=== PATIENT | female | born 1960 | race Caucasian/White ===

== ENCOUNTER → 2017-02-25 | Outpatient (CLI) | payer OTHER ==
[~2017-02-25] VITALS: Ht 168.9 cm; Wt 121.9 kg
[~2017-02-25] MED LIST: BUSP15TA70 PO; CMD4 PO; EFF75 PO; GABA-112 PO; GLC/500 PO; LEVO112T4 PO; LOSA1TAB PO; MBXC PO; METH10TA4 PO; NRN300 PO; PRLSR20 PO; SIMV10TA2 PO; WARF4TAB8 PO
[2017-02-25 14:06] VITALS: BP 137/73; PULSE 123; Ht 168.9 cm; Wt 121.9 kg
== END | disposition home or self-care (01) ==
LOC: C.NEUR 13:48
PROVIDERS: ATTEND Internal Medicine Pulmonary Disease
DX: G47.33 Obstructive sleep apnea (adult) (pediatric) (principal); R60.0 Localized edema; R53.83 Other fatigue

== ENCOUNTER → 2017-04-12 | Outpatient (CLI) | payer BC, OTHER ==
--- NOTE | 2017-04-13 06:21 | PAP/PSG TECHNICIAN REPORT ---
[facility] Field Health Officer Polysomnogram Report Study name: None Report date: 04/13/2017 Study date: 04/12/2017 Referring Physician: DR. BONILLA Name: MISTY BAUTISTA Interpreting Physician: Franky Bonilla M.D. Date of : 1960 Field Health Officer: [place]. Sex: Female Age: 57 StudyType: PSG PAP Weight: 268 lbs 18 INCHES Height: 57 years, Height 5' 6" Neck Circum: BMI: 43.25 Medications: BUPROPION HCL 100 MG, COUMADIN 4 MG, FUROSEMIDE 20 MG, GABAPENTIN 100 MG, LEVOTHYROXINE SODIUM 112 MCG, LOSARTAN POTASSIUM 25 MG, METFORMIN HCL 500 MG, OMEPRAZOLE 20 MG, SIMVASTATIN 10 MG, VENLAFAXINE HCL 75 MG Patient History PATIENT HAD A SLEEP STUDY DONE IN 2011 AND WAS POSITIVE FOR NEGRO WITH AN AHI OF 12/HR. SHE WAS STARTED ON CPAP THERAPY AND CONTINUALLY USES IT AT 11CWP. SHE IS HERE TODAY FOR AN UPDATE ON HER PRESSURE. SHE HAS GAINED AROUND 60-80 LBS SINCE HER LAST TITRATION. ESS = 7 RM 7 Parameters Monitored NPSG: E1-M2, E2-M1, Fp1-M2, Fp2-M1, F3-M2, F4-M2, F4-M1, C3-M2, C4-M2, C4-M1, O1-M2, O2-M2, O2-M1, T3-M2, T4-M1, P3-M2, P4-M1, CHIN1, CHIN2, HR, EKG, Legs, PFLOW, SNOR, FLOW, CFLOW, Tidal Volume, THOR, ABDO, SpO2, PLTH, CPRESS, ETCO2 Wave, ETCO2, pH Sleep Architecture Sleep Stages Time at Lights Off 11:02:51 PM STAGES Time (min.) TST (%) Time at Lights On 5:57:21 AM Wake 90.5 -- Total Recording Time (TRT) 415.00 min. N1 39.0 12 Total Sleep Period (TSP) 400.5 min. N2 250.5 77 Total Sleep Time (TST) 324.0min. N3 33.5 10 Awake Time 90.5 min. REM 1.0 0 Wake after Sleep Onset 76.5 min. Sleep Efficiency (SE) 78 % Sleep Onset Latency (IKE) 14.0 min. Number of Stage 1 Shifts None Awakenings 23 Stage Changes 90 Number of REM periods 1 REM 1.0 0 REM Latency 363.0 min. NREM 323.0 100 Body Position Analysis Supine Right Left Side Prone Vertical Total Sleep Time (min.) 219.0 113.5 25.0 138.51 0.0 0.0 Total Sleep Time (%) 57% 35% 8% 43 0% N/A% Total Sleep Time REM (min.) 1.0 0.0 0.0 None 0.0 0.0 Total Sleep Time NREM (min.) 184.5 113.5 25.0 None 0.0 0.0 Intermittent Wake (min.) 33.5 18.1 39.0 None 0.0 0.0 Total Sleep Period (%) 55% None None None None None Arousals Myoclonus (PLM) * Events Count Index Events Count Index Spontaneous 32 6 Events Awake (PLMW) 39 25.9 Respiratory 11 2.4 Events Asleep w/ Arousal (PLMA) 3 0.6 PLM 2 1 Events Asleep w/o Arousal (PLMS) 32 5.9 Snoring 1 0 Total Asleep 35 6.5 Total 46 9 Total 74 11 Respiratory Analysis * CA OA MA CH H RERA Total Count 0 0 0 0 4 15 4 Index 0.0 0.0 0.0 0 0.7 3 3.5 Mean Duration 0.0 0.0 0.0 0.00 19.4 14.8 15.8 Longest Duration 0.0 0.0 0.0 0.00 0.0 17.0 22.3 Respiratory Event Summary Total Supine ~Supine Right Left Prone REM NREM Apneas Count 0 0 0 0 0 N/A 0 0 Index 0.0 0 0 0.0 0.0 N/A 0 0 Hypopneas (4% Desat) Count 4 3 1 1 0 N/A 0 4 Index 0.7 1.0 0 0.5 0.0 N/A 0.0 0.7 Apneas & All Hypopneas Count 4 3 1 1 0 N/A 0 4 Index 0.7 1 0 1 0 N/A 0.0 0.7 Respiratory Events (Metal Machine Operator+All Hyp+RERA) Count 4 16 3 3 0 N/A 0 4 Index 3.5 5 1 1.6 0.0 N/A 0.0 3.5 Respiratory Related Arousal Count 11 16 2 2 0 N/A 0 13 Index 2.4 4 1 1 0 N/A 0 2 Snoring Analysis Supine Right Left Prone REM NREM Total Snore duration 4.3 min Snores count 90 97 0 N/A 2 185 187 Snore mean duration 1.4 Sec Snores index 29 51 0 N/A 120.0 34.4 34.6 TST with snoring (%) 1.3% Desaturation Event Summary: Minimum %SpO2 Event Count Mean/Min/Max Duration(sec.) Desaturation Index % Time In Bed > 90 13 20.1 / 4.3 / 44.0 2.1 92.9 86 - 90 2 5.5 / 5.0 / 6.0 4.2 7.1 81 - 85 0 N/A 0.0 0.0 76 - 80 0 N/A 0.0 0.0 71 - 75 0 N/A 0.0 0.0 66 - 70 0 N/A 0.0 0.0 61 - 65 0 N/A 0.0 0.0 56 - 60 0 N/A 0.0 0.0 51 - 55 0 N/A 0.0 0.0 < 50 0 N/A 0.0 0.0 Total REM NREM Awake <50% 0.0 min. 0.0 min. 0.0 min. 0.0 min. 51 - 60% 0.0 min. 0.0 min. 0.0 min. 0.0 min. 61 - 70% 0.0 min. 0.0 min. 0.0 min. 0.0 min. 71 - 80% 0.0 min. 0.0 min. 0.0 min. 0.0 min. 81 - 90% 28.5 min. 0.0 min. 27.7 min. 0.8 min. 91 - 100% 375.0 min. 1.0 min. 295.3 min. 78.7 min. Average 93 93 92 94 Minimum SpO2 87 92 89 87 Desaturation Event Index 1.9 0.0 0.9 5.3 # Desat. Events below 89% 3 N/A N/A 3 Time(%) with Saturation below 89% 0.0 0.0 0.0 0.0 Time(min.) with Saturation below 89% 0.2 0.0 0.0 0.2 Time (mins) REM (mins) NREM (mins) % of TST SpO2 Below 90% 1 N/A N1 0.6 SpO2 Below 88% 0 0 0 0 Heart Rate Analysis Min (bpm) Max (bpm) Average (bpm) Awake 77 127 86 NREM 76 94 85 REM 79 84 82 Overall 76 94 85 Supplemental O2 Values Minimum O2 level: None Value Start Time End Time Field Health Officer Comments Mrs. Bautista slept in the right, left and supine positions. No cardiac arrhythmia noted. Leg movements noted. No bruxism noted. CPAP was initiated at +4 CMH2O and up-titrated to an optimal level of +14 CMH2O, which nearly eliminated all respiratory events and snoring. A Resmed Mirage FX size small nasal mask was used during titration Mrs. Bautista awoke to use the restroom 1 time during the night. Mrs. Bautista stated I did not sleep as well as I do when I am in my own bed. The final report will be interpreted and signed by a sleep physician. The completed physician report will then be placed in the patient medical record. Therapy Event: Therapy (cm H20) 4 10 11 12 13 14 Total Time at Pressure (min.) 0.4 63.2 27.3 46.9 225.6 51.0 TST at Pressure (min.) 0.0 40.1 25.3 46.9 160.6 51.0 # Periods 1 1 1 1 1 1 Sleep Onset (min.) N/A 13.6 0.0 0.0 0.0 0.0 REM Onset (min.) N/A N/A N/A N/A N/A 13.5 Sleep Efficiency % 0 63 92 100 71 100 Wakefulness (%) 100.0 36.5 7.3 0.0 28.8 0.0 Wakefulness (min.) 0.4 23.1 2.0 0.0 65.0 0.0 NREM 1 (%) 0.0 15.0 7.3 2.1 11.5 1.0 NREM 1 (min.) 0.0 9.5 2.0 1.0 26.0 0.5 NREM 2 (%) 0.0 48.4 85.4 26.5 59.7 97.1 NREM 2 (min.) 0.0 30.6 23.3 12.4 134.6 49.5 NREM 3 (%) 0.0 0.0 0.0 71.4 0.0 0.0 NREM 3 (min.) 0.0 0.0 0.0 33.5 0.0 0.0 REM (%) 0.0 0.0 0.0 0.0 0.0 2.0 REM (min.) 0.0 0.0 0.0 0.0 0.0 1.0 # Arousals N/A 6 8 4 27 1 Arousal Index N/A 9.0 18.9 5.1 10.1 1.2 # Snore N/A 13 46 27 88 13 Snore Index N/A 19.5 109.0 34.5 32.9 15.3 AHI N/A 1.5 0.0 1.3 0.7 0.0 AHI Supine N/A 4.0 0.0 N/A 1.2 0.0 AHI Non-Supine N/A 0.0 0.0 1.3 0.0 N/A NREM AHI N/A 1.5 0.0 1.3 0.7 0.0 REM AHI N/A N/A N/A N/A N/A 0.0 RDI N/A 6.0 16.6 1.3 2.2 1.2 # Obstructive N/A 0 0 0 0 0 # Central Ap N/A 0 0 0 0 0 # Mixed N/A 0 0 0 0 0 # Hypopneas N/A 1 0 1 2 0 RERAS N/A 3 7 0 4 1 Total Respiratory Events N/A 4 7 1 6 1 Time Below SpO2 89.00% (min.) 0.0 0.0 0.0 0.0 0.0 0.0 Mean NREM SpO2 (%) N/A 92 92 91 92 92 Mean REM SpO2 (%) N/A N/A N/A N/A N/A 93 Mean Sleep SpO2 (%) N/A 92 92 91 92 92 Min NREM SpO2 (%) N/A 89 90 89 89 90 Min REM SpO2 (%) N/A N/A N/A N/A N/A 92 Position Supine (min.) 0.0 15.1 15.9 0.0 103.5 51.0 Position Non-supine (min.) 0.0 25.0 9.4 46.9 57.1 0.0 LM Index Sleep N/A 6.0 14.2 2.6 8.2 1.2 LM Index NREM N/A 6.0 14.2 2.6 8.2 1.2 LM Index REM N/A N/A N/A N/A N/A 0.0 Mean Heart Rate (bpm) N/A 87 85 88 84 83 Min Heart Rate (bpm) N/A 79 80 82 76 78
--- NOTE | 2017-04-16 10:14 | POLYSOMNOGRAPH REPORT ---
CLINICAL DATA: A 57-year-old female with BMI of 43.25 referred by myself and Dr. Wade for a CPAP titration study. She had a sleep study done in 2012, which showed mild sleep apnea with an AHI of 12. She was started on CPAP and uses it at 11 cm water pressure. She still has fatigue. She has gained 60 pounds since her last titration study. Her [place] Sleepiness Score is 7/24. SLEEP ARCHITECTURE: Total sleep period was 400.5 minutes. Total sleep time was 324 minutes divided between 323 minutes of non-REM sleep, 1 minute of REM sleep. Sleep onset latency was 14 minutes. REM latency was delayed at 363 minutes. Sleep efficiency was 78%. Wake after sleep onset was 76.5 minutes. Sleep consisted of stage N1 12%, N2 77%, N3 10%, and REM less than 1%. AROUSAL DATA: Forty-six arousals were recorded for an index of 9 per hour. PLM DATA: Thirty-five limb movements during sleep were noted for an index of 6.5 per hour with arousal index of 0.6 per hour. RESPIRATORY DATA: The AHI was 4. It was 0.7. There were 4 hypopneic episodes with a mean duration of 19.4 seconds. OXIMETRY DATA: No hypoxemia was seen. Oxygen kiera was 89%. Mean saturation was 92%. EKG: Heart ranged from 76-94 beats per minute. No arrhythmias were noted. TOE STRIPPER'S COMMENTS AND TREATMENT SUMMARY: The patient used a ResMed Mirage FX size small nasal mask. She was titrated up to her final pressure setting of 14 cm of water pressure. At her final pressure setting, the patient slept for 51 minutes with an AHI of 1.2. IMPRESSION: Obstructive sleep apnea corrected with CPAP 14 cm of water pressure ResMed Mirage FX size small nasal mask. RECOMMENDATIONS: The patient should have her CPAP adjusted to 14 cm of water pressure. She should be seen back in followup within 90 days to document efficacy and compliance. [place]
== END | disposition home or self-care (01) ==
LOC: C.NEUR 21:00
PROVIDERS: ATTEND Internal Medicine Pulmonary Disease
DX: R60.0 Localized edema (principal); R53.83 Other fatigue; G47.33 Obstructive sleep apnea (adult) (pediatric)

== ENCOUNTER 2017-04-21 17:18 | Emergency (ER) | payer BC, OTHER ==
[~2017-04-21] VITALS: Ht 165.1 cm; Wt 124.9 kg
[~2017-04-21 17:18] MED LIST changes: -CMD4 PO; -MBXC PO; -METH10TA4 PO; -NRN300 PO
[2017-04-21 17:21] VITALS: TEMP 36.7; Ht 165.1 cm; Wt 124.9 kg
[2017-04-21] MEDS ORDERED: NRN300 PO (17:33)
[2017-04-21] MEDS ORDERED: MBXC PO (18:07)
[2017-04-21 18:15] VITALS: BP 142/65; PULSE 88; O2SAT 95
--- NOTE | 2017-04-22 23:32 | EMERGENCY ROOM VISIT NOTE ---
ED Visit Note First contact with patient: 17:30 Chief Complaint: Yellow, sore tongue. History of Present Illness: Ms. Sexton is a 57-year-old white female who ambulates into the ED complaining of tongue pain with occasional blisters and a yellowish color. Patient reports these symptoms have been ongoing for the last 4 months and has waxed and waned in intensity. She reports she was not able to visit her PCP as she recently started a new job. She reports over the last 4 months her pain has been variable from non-rating of 6/10. Most of her discomfort as been on the top of the tongue and along the lateral edges of the tongue. Her tongue worsens with palpation and sometimes talking. She has not identified any alleviating factors related to the pain. She has not taken any medications for pain prior to arrival at the hospital or since the onset of her pain. Associated with her pain she reports intermittently she notices a yellow discoloration to her tongue that she is able to scrape off or brush off, occasionally she reports she sees blisters on a nonerythematous base and also she intermittently sees ulcers Asians along the lateral surface of the tongue. Because of the pain she reports intermittently she has painful talking and painful swallowing. She denies fevers, chills, sweats, other skin eruptions, other skin color changes, sore throat, voice changes, drooling, neck pain/stiffness, cough, wheezing, shortness of breath, decreased appetite, nausea, vomiting. Additionally she reports she does not smoke, she has not been put on any new medications, she is not changed her oral hygiene products. Review of Systems: As noted above in history of present illness. 8 body systems were reviewed and found to be negative as noted above. Past Medical History: Prediabetes, bronchitis, dyslipidemia, hypothyroidism, deep vein thrombus, pulmonary embolism. Current Medications: Glucophage, Prilosec, levothyroxine, warfarin, Cozaar, Zocor, BuSpar, Effexor, gabapentin. Allergies to Medications: Codeine, lisinopril and morphine. Social History: Patient is currently employed; she feels safe in her home environment; she denies tobacco and alcohol use. Physical Examination: Vital Signs: Date Time Temp Pulse Resp B/P (MAP) Pulse Ox O2 Delivery O2 Flow Rate FiO2 04/21/17 18:15 88 18 142/65 95 Room Air 04/21/17 17:21 36.7 103 20 134/72 92 Room Air GENERAL: 57-year-old female in mild distress due to pain, nontoxic-appearing, afebrile and hemodynamically stable. NEUROLOGICAL: Awake, alert and oriented to person, place and time. Answering questions appropriately and following commands. Normal gait. Good hand eye coordination. No focal motor or sensory deficits. SKIN: Warm, dry and pink. No soft tissue eruptions or trauma noted. HEENT: Atraumatic and normocephalic. PERRLA. Sclera white and conjunctiva pink. No drainage from naris. Oral cavity moist and pink. Patient's tongue is of normal color. I do note to ulcers over the left lateral border. There is no local erythema or edema. Her tongue was tender when I depressed it with a tongue blade. Pharynx is nonerythematous or edematous. Speech normal. No lymphadenopathy. Trachea midline. No jugular venous distention. THORAX: Lungs sounds are clear to auscultation and equal bilaterally with symmetrical chest wall. ED Course: Patient is assessed as noted above per Patient's medication list was reviewed. I did do an Internet research and no specific etiology was identified. Patient was educated about today's findings and instructed on her treatment plan ; she verbalized understanding and agreement with this plan. Clinical Impression: Painful tongue. Yellow tongue. Disposition: Patient discharged home in stable condition; prior to departure she was reassessed and subjectively reported she was feeling the same. Plan: Patient was encouraged use 600 mg of ibuprofen as needed for pain every 6 hours. Patient was prescribed a magic swizzle formula and instructed on achieves. Patient was encouraged to increase brushing of her teeth and tongue, she was encouraged to floss daily and encouraged to use fluorinated mouthwash at least once a day. Patient was encouraged to stay well-hydrated and avoid caffeine, tobacco and alcohol use. Patient was encouraged to chew sugarless gum to help increase mouth secretions. Patient was encouraged to follow-up with her PCP for recheck. Patient was encouraged return the ED for worsening tongue changes, uncontrolled pain, fevers, vomiting, abdominal pain or any new/concerning symptoms.
[2017-08-11] MEDS ORDERED: METH10TA4 PO (11:59)
[2017-08-20] MEDS ORDERED: BUSP15TA70 PO (14:02)
[2017-08-20] MEDS ORDERED: EFF75 PO (14:02)
[2017-08-20] MEDS ORDERED: CMD4 PO (14:02)
== END 2017-04-21 18:16 | disposition home or self-care (01) ==
LOC: C.EDB 17:20 → C.EDD 18:16
DX: K14.6 Glossodynia (principal); R73.03 Prediabetes; E78.5 Hyperlipidemia, unspecified; E03.9 Hypothyroidism, unspecified; Z86.711 Personal history of pulmonary embolism; Z86.718 Personal history of other venous thrombosis and embolism; Z79.01 Long term (current) use of anticoagulants; Z79.899 Other long term (current) drug therapy

== ENCOUNTER → 2017-05-09 | Outpatient (CLI) | payer BC, OTHER ==
[~2017-05-09] VITALS: Ht 167.6 cm; Wt 122.0 kg
[~2017-05-09] MED LIST changes: -GABA-112 PO; +MBXC PO; +METH10TA4 PO; +NRN300 PO
[2017-05-09 15:52] VITALS: BP 141/74; PULSE 112; Ht 167.6 cm; Wt 122.0 kg
== END | disposition home or self-care (01) ==
LOC: C.NEUR 15:15
PROVIDERS: ATTEND Internal Medicine Pulmonary Disease
DX: G47.33 Obstructive sleep apnea (adult) (pediatric) (principal); F41.9 Anxiety disorder, unspecified; R60.0 Localized edema; Z79.01 Long term (current) use of anticoagulants; D68.51 Activated protein C resistance; I10 Essential (primary) hypertension; R73.03 Prediabetes; E03.9 Hypothyroidism, unspecified

== ENCOUNTER → 2018-01-23 | Outpatient (CLI) | payer OTHER ==
[~2018-01-23] VITALS: Ht 168.9 cm; Wt 121.5 kg
[~2018-01-23] MED LIST changes: -MBXC PO; -METH10TA4 PO; -NRN300 PO; +SIME80CH PO
[2018-01-23 16:02] VITALS: BP 135/81; PULSE 96; Ht 168.9 cm; Wt 121.5 kg
== END | disposition home or self-care (01) ==
LOC: C.NEUR 15:34
PROVIDERS: ATTEND Internal Medicine Pulmonary Disease
DX: G47.33 Obstructive sleep apnea (adult) (pediatric) (principal)

== ENCOUNTER 2025-06-29 10:22 | Inpatient (IN) ==
--- NOTE | 2025-06-29 11:10 | Emergency Department Note ---
Impression & Plan Cat bite of right hand with infection, Cellulitis ED Provider Note CHIEF COMPLAINT: Cat bite, possible infection HISTORY OF PRESENTING ILLNESS: The patient is a 65-year-old female who presents to the emergency department stating that she was bit by her cat 3 days ago on the top of her right hand. She now reports swelling and that it is painful. The cats vaccines are UTD. She denies fever, drainage from the area, nausea or vomiting. She reports that the area is tender to touch and painful to move the wrist and hand. She notes significant swelling last evening which has now improved. REVIEW OF SYSTEMS: See HPI for pertinent positives and pertinent negatives. ALLERGIES: Trazodone, codeine, lisinopril, morphine, latex MEDICATIONS: See below PAST MEDICAL HISTORY: See below PHYSICAL EXAM: VITALS: Vitals are noted on the nurses note and reviewed by myself. Vital signs stable. GENERAL: 65-year-old female, in no acute distress, nondiaphoretic, well- developed well-nourished. SKIN: Capillary refill less than 2 seconds. Right hand and wrist with significant edema, erythema, and is tender to touch. The area is warm. There are no areas of fluctuance or drainage. Redness does extend up to the right elbow. HEENT: Normocephalic. PERRLA. EOMI. Nares patent. Mucous membranes moist. Neck is supple. MUSCULOSKELETAL: Pain with movement of the right hand and wrist. 2+ radial and ulnar pulse palpated bilaterally. 3/5 right upper extremity strength secondary to discomfort. NEURO: Patient was alert and oriented. Normal sensation on exam. No focal neurological deficits. DIFFERENTIAL DIAGNOSIS: Cellulitis, abscess, septic arthritis, osteomyelitis, tenosynovitis, tetanus, rabies, sepsis, among others. ED COURSE AND MEDICAL DECISION MAKING: HISTORY FROM INDEPENDENT HISTORIAN: The patient herself. MEDICATIONS GIVEN: Zosyn 4.5 g IV INTERPRETATION OF LABS: I interpreted the labs with full lab results as below in the lab section of this note. Pertinent lab results discussed in the MDM section below. INTERPRETATION OF IMAGING: No images were obtained. ESCALATION OF CARE CONSIDERED: Escalation of care was considered as the patient was bit by her cat on her right hand 3 days ago and was not started on antibiotics. The area is now significantly swollen, red, and tender and extends up to the elbow. The patient was given IV antibiotics here in the ER and admitted for continual IV antibiotic treatment. CONSULTATIONS: [facility] hospitalist - Informed them of the patient's pain to the right hand and infection up to the elbow after a cat bite. She was given a dose of IV antibiotics here. They agreed to admit the patient to medicine. MDM SUMMARY: I evaluated the 65-year-old female who presents to the emergency department due to a cat bite and concern for infection on the right hand. See HPI and physical exam above. IV access was established and labs were obtained. Patient was given Zosyn. Leukocytosis WBC elevated 13.92. Anemia noted. Levels are lower compared to previous lab studies from 2019. Patient does report anemia at baseline. Mild hypokalemia 3.2. All laboratory results reviewed with the patient. She is afebrile and nontoxic-appearing. I did have a long discussion with her regarding the significance of her cat bite and that I do not believe it will resolve on its own with oral antibiotics. Patient is agreeable to admission for IV antibiotics. Consultation with the on-call hospitalist can be seen in detail above. The patient was admitted in stable condition. DIAGNOSIS: Cat bite of right hand with infection, cellulitis The chart was completed utilizing [employer] voice recognition software. Grammatical errors, random word insertions, pronoun errors, and incomplete sentences are an occasional consequence of this system due to software limitations, ambient noise, and hardware issues. Any formal questions or concerns about the content, text, or information contained within the body of this dictation should be directly addressed to the provider for clarification. Past Med/Surg History Problem List (Updated 06/29/25 @ 20:09 by Susan Moffett PA-C) Cellulitis (Acute) Cat bite of right hand with infection (Acute) Cellulitis Cat bite of hand Esophageal dysphagia Vestibular schwannoma Sensorineural hearing loss (SNHL) of left ear Vertigo Quadriceps weakness Osteoarthritis of left knee Lumbar radiculopathy Current use of salvage determiner anticoagulation (Chronic) Mild obstructive sleep apnea Hyperlipidemia (Acute) Hypertension (Acute) Peripheral edema Obesity Nocturnal hypoxemia Osteoarthritis Anemia no hx blood transfusions Depression Pulmonary embolism 06/2016- on warfarin Dermatochalasis of both upper eyelids Factor 5 Leiden mutation, heterozygous Hypothyroidism GERD (gastroesophageal reflux disease) DVT (deep venous thrombosis) Diabetes Medical History Vertigo Osteoarthritis Lumbar radiculopathy 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 2022 Vestibular schwannoma hx- brain tumor removed 2022- [facility]- emergent surgery, size of an orange, unable to get entire tumor- needed nerves cut-had left-sided facial damage/ has double vision of left eye and lost hearing in left ear March 2024- had "face lift" on left side to correctly use mouth- currently doing PT for face, will follow up with ENT doctor in [place] and have MRI yearly History of anemia HLD (hyperlipidemia) Depression Mild obstructive sleep apnea cannot tolerate cpap (had rash from mask) History of peripheral edema Diabetes Hx pulmonary embolism (2015) treated at [facility]- on coumadin- no clots since Hx of deep venous thrombosis LE "years ago"-in her 30's- on warfarin Morbid obesity GERD (gastroesophageal reflux disease) no recent issues Hypothyroidism Factor 5 Leiden mutation, heterozygous Surgical History History of facial surgery (03/2024) March 2024- had "face lift" on left side to correctly use mouth after damage from brain tumor surgery in 2022- currently doing PT for face, will follow up with ENT doctor in [place] and have MRI yearly Hx of abdominal surgery (1981) in early s, prior to laparoscopy, for endometriosis "cut from hip to hip" Hx of brain surgery (01/2023) brain tumor removed- [facility]- emergent surgery, size of an orange, unable to get entire tumor- needed nerves cut-had left-sided facial damage/ has double vision of left eye and lost hearing March 2024- had "face lift" on left side to correctly use mouth- currently doing PT for face, will follow up with ENT doctor in [place] and have MRI yearly H/O blepharoplasty (12/06/19) S/P endometrial ablation History of esophagogastroduodenoscopy (EGD) History of laparoscopy several-due to endometriosis History of colonoscopy S/P T&A (status post tonsillectomy and adenoidectomy) History of tubal ligation History of hysterectomy Family History Brother Colon cancer Hypertension Father Hypertension Mother Hypertension Heart disease Sister Hypertension Daughter Environmental allergies Family/Other Environmental allergies granddaughter Asthma nephew Other No family history of adverse response to anesthesia No family history of bleeding disorder Social History Smoking Status: Never smoker Tobacco Type: Cigarettes Cigarettes Per Day: less than 1ppd; Second Hand Exposure: No; Do You Dip or Chew Tobacco: No; Hx Alcohol Use: No Hx Substance Use: No Preferred Language: Georgian Communication Ability: Effective Environmental Restoration Planner Required: No Beliefs That Will Affect Care: None Current Living Situation: Alone Feels Safe at Home: Yes Sunscreen Use: Yes Assistive Devices: Cane, Glasses and Walker Allergies Allergies Allergy/AdvReac Type Severity Reaction Status Date / Time trazodone Allergy Mild Nausea Verified 03/25/25 09:25 codeine AdvReac Intermediate GI SYMPTOMS Verified 03/25/25 09:25 lisinopril AdvReac Intermediate COUGH Verified 03/25/25 09:25 morphine AdvReac Intermediate N/V WITH Verified 03/25/25 09:25 HIGHER DOSES latex AdvReac Mild Rash Verified 03/25/25 09:25 Home Meds Home Medications Medication Instructions Recorded Confirmed acetaminophen 500 mg tablet 500 - 1,000 mg PO UD PRN pain 09/24/19 06/29/25 (Acetaminophen Pain Relief) atorvastatin 10 mg tablet 10 mg PO QPM 07/17/20 06/29/25 pantoprazole 40 mg tablet,delayed 40 mg PO QAM 07/17/20 06/29/25 release levothyroxine 112 mcg capsule 112 mcg PO QAM 07/24/22 06/29/25 duloxetine 60 mg capsule,delayed 60 mg PO BID 04/29/23 06/29/25 release (Cymbalta) multivitamin 1 tab PO DAILY 11/14/23 06/29/25 vitamin B complex 1 tab PO DAILY 01/09/24 06/29/25 furosemide 20 mg tablet (Lasix) 40 - 80 mg PO DAILY PRN edema 06/18/24 06/29/25 semaglutide 7 mg tablet (Rybelsus) 7 mg PO BID 02/09/25 06/29/25 nystatin 100,000 unit/gram topical 1 applic topical UD 06/29/25 06/29/25 ointment warfarin 4 mg tablet 4 mg PO .3 DAYS A WEEK 06/29/25 06/29/25 warfarin 4 mg tablet 8 mg PO .4 DAYS A WEEK 06/29/25 06/29/25 Results & Data (ED) Vital Signs Vital Signs - 24 hr 06/29/25 10:56 06/29/25 12:48 06/29/25 14:00 Temperature 36.1 C L Temperature Source Temporal Artery Scan Pulse Rate 100 H 74 Respiratory Rate 18 Blood Pressure 147/77 H 151/117 H Blood Pressure Mean 100 131 Pulse Oximetry 97 Oxygen Delivery Method Room Air Sepsis New/Unexplained Change in Mental Status No Sepsis Action Taken by Nursing No Action Required 06/29/25 14:09 Temperature Temperature Source Pulse Rate 76 Respiratory Rate 22 Blood Pressure Blood Pressure Mean Pulse Oximetry 96 Oxygen Delivery Method Room Air Sepsis New/Unexplained Change in Mental Status Sepsis Action Taken by Nursing Laboratory Data 06/29/25 11:15 06/29/25 11:15 Lab Results 06/29/25 Range/Units 11:15 WBC 13.92 H (4.8-10.8) K/ul RBC 4.61 (4.20-5.40) M/uL Hgb 9.7 L (12.0-16.0) g/dl Hct 33.4 L (37.0-47.0) % MCV 72.5 L (80.0-100.0) fL MCH 21.0 L (25.0-34.0) pg MCHC 29.0 L (32.0-36.0) g/dL RDW Std Deviation 49.3 H (36.4-46.3) fL RDW Coeff of Nii 19.3 H (11.5-14.5) % Plt Count 460 H (130-400) K/uL MPV 9.3 L (9.4-12.4) fL Immature Gran % (Auto) 0.4 % Neut % (Auto) 80.1 % Lymph % (Auto) 10.4 % Pender % (Auto) 7.5 % Eos % (Auto) 1.1 % Baso % (Auto) 0.5 % Neut # (Auto) 11.16 H (1.40-6.50) K/uL Lymph # (Auto) 1.45 (1.20-3.40) K/uL Pender # (Auto) 1.04 H (0.11-0.59) K/uL Eos # (Auto) 0.15 (0.00-0.50) K/uL Baso # (Auto) 0.07 (0.00-0.20) K/uL Immature Gran # (Auto) 0.05 (0.01-0.20) K/uL PT 26.6 H (9.0-12.0) Seconds INR 2.7 H (0.9-1.1) Sodium 137 (136-145) mmol/L Potassium 3.2 L (3.5-5.1) mmol/L Chloride 100 (98-107) mmol/L Carbon Dioxide 29 (21-32) mmol/L Anion Gap 8 (3-11) BUN 11 (6-23) mg/dl Creatinine 0.54 L (0.6-1.2) mg/dl Est Cr Clr Drug Dosing 125.8 ml/min eGFR 102.75 BUN/Creatinine Ratio 20.4 H (10-20) Glucose 97 (70-99(Fasting)) mg/dl Calcium 10.3 (8.6-10.3) mg/dl Total Bilirubin 0.9 (0.2-1.0) mg/dl AST 17 (13-39) U/L ALT 10 (7-52) U/L Alkaline Phosphatase 104 (34-104) U/L Total Protein 7.4 (6.0-8.3) gm/dl Albumin 4.0 (3.4-5.0) gm/dl Globulin 3.4 (2.5-4.0) gm/dl Albumin/Globulin Ratio 1.2 (0.9-2) Administered Medications Atorvastatin Calcium (Atorvastatin 10 Mg Tab) 10 mg PO QPM MAURICE Stop: 07/29/25 20:59 Last Admin: 06/29/25 19:58 Dose: 10 mg Documented By: TKB Duloxetine HCl (Duloxetine Hcl 60 Mg Cap) 60 mg PO BID MAURICE Stop: 07/29/25 20:59 Last Admin: 06/29/25 19:58 Dose: 60 mg Documented By: TKB Piperacillin Sod/Tazobactam Sod (Zosyn) 4.5 gm in 100 mls @ 25 mls/hr IV Q8H MAURICE; Protocol Stop: 07/06/25 17:29 Last Admin: 06/29/25 18:22 Dose: 25 mls/hr Documented By: RUBÉN Warfarin Sodium (Warfarin Sod 4 Mg Tab) 8 mg PO [id number] MAURICE Stop: 07/29/25 17:16 Last Admin: 06/29/25 18:42 Dose: Not Given Documented By: RUBÉN Discontinued Medications Piperacillin Sod/Tazobactam Sod (Zosyn) 4.5 gm in 100 mls @ 200 mls/hr IV NOW ONE; Protocol Stop: 06/29/25 12:03 Last Infusion: 06/29/25 15:28 Dose: Infused Documented By: Admin: 06/29/25 11:44 Dose: 200 mls/hr Documented By: JENNIFER Tetanus Immune Globulin (Tetanus Immune Globulin (Human) 250 Units/Ml Syr) 250 units IM .ONCE ONE Stop: 06/29/25 17:18 Last Admin: 06/29/25 18:43 Dose: 250 units Documented By: RUBÉN Discharge Plan Visit Data Chief Complaint: Bite Stated Complaint: CAT BITE, POSSIBLE INFECTION ED Provider: Franky Smith ED Midlevel Provider: Susan Moffett Discharge Problem: Cat bite of right hand with infection, Cellulitis Patient Disposition: Admitted As Inpatient Condition: Good Discharge Instructions Interventions: ED Discharge Assessment Last Done: 06/29/25 16:28 Discharge Problem: Cat bite of right hand with infection Qualifiers: Encounter type: initial encounter Qualified Code(s): S61.451A - Open bite of right hand, initial encounter; L08.9 - Local infection of the skin and subcutaneous tissue, unspecified; W55.01XA - Bitten by cat, initial encounter Cellulitis Qualifiers: Site of cellulitis: extremity Site of cellulitis of extremity: upper extremity Laterality: right Qualified Code(s): L03.113 - Cellulitis of right upper limb
[2025-06-29] MEDS: PIPERACILLIN/TAZOBACTAM 4.5 GM/100 ML BAG IV ONE (11:44)
[2025-06-29 11:49] LABS: Hematocrit (blood only) 33.4 % (37.0-47.0); Hemoglobin 9.7 g/dl (12.0-16.0); Immature Granulocytes # (auto) 0.05 K/uL (0.01-0.20); Immature Granulocytes % (auto) 0.4 %; Mean Corpuscular Hemoglobin 21.0 pg (25.0-34.0); Mean Corpuscular Volume 72.5 fL (80.0-100.0); Platelet Count 460 K/uL (130-400); RDW Standard Deviation 49.3 fL (36.4-46.3); Red Blood Count 4.61 M/uL (4.20-5.40); White Blood Count 13.92 K/ul (4.8-10.8)
[2025-06-29 12:06] LABS: Alanine Aminotransferase 10.0 U/L (7-52); Albumin Globulin Ratio 1.2 (0.9-2); Alkaline Phosphatase 104.0 U/L (34-104); Anion Gap 8.0 (3-11); Bilirubin,Total 0.9 mg/dl (0.2-1.0); Blood Urea Nitrogen 11.0 mg/dl (6-23); Calcium 10.3 mg/dl (8.6-10.3); Carbon Dioxide 29.0 mmol/L (21-32); Chloride 100.0 mmol/L (98-107); Creatinine Clr Calc Pharmacy 125.8 ml/min; Globulin 3.4 gm/dl (2.5-4.0); Glucose 97.0 mg/dl (70-99(Fasting)); Potassium 3.2 mmol/L (3.5-5.1); Sodium 137.0 mmol/L (136-145); Total Protein 7.4 gm/dl (6.0-8.3)
--- NOTE | 2025-06-29 14:38 | History & Physical Report ---
Date of Service June 29, 2025 Assessment & Plan (1) Cat bite of hand: Plan: Patient was playing with her 1-year-old cart earlier and got bitten accidentally. Please got red swollen. Patient did not take any antibiotics. However here in the hospital she showed me an older picture which showed the swelling has actually improved. Will start her on IV Zosyn Give her a shot of tetanus (2) Cellulitis: Plan: Cellulitis secondary to cat bite With some lymphangitic streaking Continue IV Zosyn as above (3) Pulmonary embolism: Plan: History of factor V Leiden mutation Had pulm embolism and DVT Currently on warfarin (4) Factor 5 Leiden mutation, heterozygous: (5) Vestibular schwannoma: Plan Admit to [facility] Full code History of Present Illness Chief Complaint: cat bite Primary Care Provider: NO PCP This is a 65-year-old female with a history of type 2 diabetes, DVT and PE on warfarin vestibular schwannoma s/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 Currently the patient, she was playing with her 1-year-old cat when she accidentally bit her. Initially she did not think much of it however the plate started to swell up and got red so she got concerned and decided to come to the hospital for further evaluation and further treatment. She said the cat is up-to-date on her vaccinations. Here in the emergency department blood pressure was 151/117, pulse 76 temperature 97 however WBC was 13,000. She received a dose of antibiotics and will be admitted to the hospital further management. Allergies Allergy/AdvReac Type Severity Reaction Status Date / Time trazodone Allergy Mild Nausea Verified 03/25/25 09:25 codeine AdvReac Intermediate GI SYMPTOMS Verified 03/25/25 09:25 lisinopril AdvReac Intermediate COUGH Verified 03/25/25 09:25 morphine AdvReac Intermediate N/V WITH Verified 03/25/25 09:25 HIGHER DOSES latex AdvReac Mild Rash Verified 03/25/25 09:25 Home Medications Medication Instructions Recorded Confirmed Type acetaminophen 500 mg tablet 500 - 1,000 mg PO UD PRN pain 09/24/19 06/29/25 History (Acetaminophen Pain Relief) atorvastatin 10 mg tablet 10 mg PO QPM 07/17/20 06/29/25 History pantoprazole 40 mg tablet,delayed 40 mg PO QAM 07/17/20 06/29/25 History release levothyroxine 112 mcg capsule 112 mcg PO QAM 07/24/22 06/29/25 History duloxetine 60 mg capsule,delayed 60 mg PO BID 04/29/23 06/29/25 History release (Cymbalta) multivitamin 1 tab PO DAILY 11/14/23 06/29/25 History vitamin B complex 1 tab PO DAILY 01/09/24 06/29/25 History furosemide 20 mg tablet (Lasix) 40 - 80 mg PO DAILY PRN edema 06/18/24 06/29/25 History semaglutide 7 mg tablet (Rybelsus) 7 mg PO BID 02/09/25 06/29/25 History nystatin 100,000 unit/gram topical 1 applic topical UD 06/29/25 06/29/25 History ointment warfarin 4 mg tablet 4 mg PO .3 DAYS A WEEK 06/29/25 06/29/25 History warfarin 4 mg tablet 8 mg PO .4 DAYS A WEEK 06/29/25 06/29/25 History Past Med/Surg History Problem List (Updated 06/29/25 @ 14:35 by Rukhsana Cristobal MD) Cellulitis Cat bite of hand Esophageal dysphagia Vestibular schwannoma Sensorineural hearing loss (SNHL) of left ear Vertigo Quadriceps weakness Osteoarthritis of left knee Lumbar radiculopathy Current use of continuous churn buttermaker anticoagulation (Chronic) Mild obstructive sleep apnea Hyperlipidemia (Acute) Hypertension (Acute) Peripheral edema Obesity Nocturnal hypoxemia Osteoarthritis Anemia no hx blood transfusions Depression Pulmonary embolism 06/2016- on warfarin Dermatochalasis of both upper eyelids Factor 5 Leiden mutation, heterozygous Hypothyroidism GERD (gastroesophageal reflux disease) DVT (deep venous thrombosis) Diabetes Medical History Vertigo Osteoarthritis Lumbar radiculopathy 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 2022 Vestibular schwannoma hx- brain tumor removed 2022- [facility]- emergent surgery, size of an orange, unable to get entire tumor- needed nerves cut-had left-sided facial damage/ has double vision of left eye and lost hearing in left ear March 2024- had "face lift" on left side to correctly use mouth- currently doing PT for face, will follow up with ENT doctor in [place] and have MRI yearly History of anemia HLD (hyperlipidemia) Depression Mild obstructive sleep apnea cannot tolerate cpap (had rash from mask) History of peripheral edema Diabetes Hx pulmonary embolism (2015) treated at [facility]- on coumadin- no clots since Hx of deep venous thrombosis LE "years ago"-in her 30's- on warfarin Morbid obesity GERD (gastroesophageal reflux disease) no recent issues Hypothyroidism Factor 5 Leiden mutation, heterozygous Surgical History History of facial surgery (03/2024) March 2024- had "face lift" on left side to correctly use mouth after damage from brain tumor surgery in 2022- currently doing PT for face, will follow up with ENT doctor in [place] and have MRI yearly Hx of abdominal surgery (1981) in early , prior to laparoscopy, for endometriosis "cut from hip to hip" Hx of brain surgery (01/2023) brain tumor removed- [facility]- emergent surgery, size of an orange, unable to get entire tumor- needed nerves cut-had left-sided facial damage/ has double vision of left eye and lost hearing March 2024- had "face lift" on left side to correctly use mouth- currently doing PT for face, will follow up with ENT doctor in [place] and have MRI yearly H/O blepharoplasty (12/06/19) S/P endometrial ablation History of esophagogastroduodenoscopy (EGD) History of laparoscopy several-due to endometriosis History of colonoscopy S/P T&A (status post tonsillectomy and adenoidectomy) History of tubal ligation History of hysterectomy Family History Brother Colon cancer Hypertension Father Hypertension Mother Hypertension Heart disease Sister Hypertension Daughter Environmental allergies Family/Other Environmental allergies granddaughter Asthma nephew Other No family history of adverse response to anesthesia No family history of bleeding disorder Social History (Updated 09/23/22 @ 11:31 by Olive Bertrand) Smoking Status: Former smoker Tobacco Type: Cigarettes Cigarettes Per Day: less than 1ppd; Second Hand Exposure: No; Do You Dip or Chew Tobacco: No; Hx Alcohol Use: Yes Alcohol type: beer and wine Alcohol Intake Frequency Comment: socially Hx Substance Use: No Preferred Language: German Communication Ability: Effective Full Roll Inspector Required: No Beliefs That Will Affect Care: None Current Living Situation: Alone Feels Safe at Home: Yes Sunscreen Use: Yes Assistive Devices: Glasses Review of Systems Review of Systems: All systems reviewed are negative, apart from the ones contained in the history. Physical Exam Physical Exam: The patient is awake, alert and oriented 3, well developed and well nourished, normocephalic and atraumatic, lying in bed and in no acute distress. HEENT--PERRL, EOMI, mucous membranes and oropharynx mildly dry Neck--supple. No JVD. No bruits. Thyroid normal, trachea midline, no adenopathy. Heart--normal S1 and S2. No murmurs, rubs or gallops. Lungs--clear bilaterally, no respiratory distress, no accessory muscle use. Abdomen--normal bowel sounds and soft. Extremities--no cyanosis or clubbing. No edema. Dermatologic--normal skin turgor, normal color, no abnormal lymph nodes, no rash. Neurologic--cranial nerves II through XII grossly intact. Rheumatologic--normal range of motion. Psychiatric--normal affect. Results & Data Results & Data Vital Signs (Past 12 Hours) Vital Signs Temp Pulse Resp BP Pulse Ox O2 Del Method 06/29/25 14:09 76 22 96 Room Air 06/29/25 14:00 151/117 H 06/29/25 12:48 74 06/29/25 10:56 97.0 F L 100 H 18 147/77 H 97 Room Air PG Care Time/CCT Total # of Minutes Spent Total Time Spent with Patient: Total time spent is greater than 50% in coordination of care (as documented) at patient's floor/unit and/or counseling patient: Coding Level of Care Code 62535 INT INP/OBS CARE 2/55MIN Diagnoses Cat bite of hand S61.459A; W55.01XA Cellulitis L03.90 Pulmonary embolism I26.99 Factor 5 Leiden mutation, heterozygous D68.51 Vestibular schwannoma D33.3 Time Spent (min) 55
[2025-06-29] MEDS ORDERED: ONDANSETRON INJ 2 MG/ML 2 ML VIAL IV PRN (17:17)
[2025-06-29] MEDS ORDERED: ACETAMINOPHEN 325 MG TAB PO PRN (17:17)
[2025-06-29 18:00] LABS: INR 2.7 (0.9-1.1); Prothrombin Time 26.6 Seconds (9.0-12.0)
[2025-06-29] MEDS: PIPERACILLIN/TAZOBACTAM 4.5 GM/100 ML BAG IV SCH (18:22)
[2025-06-29] MEDS: WARFARIN SOD 4 MG TAB PO SCH (18:42)
[2025-06-29] MEDS: TETANUS IMMUNE GLOBULIN (HUMAN) 250 UNITS/ML SYR IM ONE (18:43)
[2025-06-29] MEDS: ATORVASTATIN 10 MG TAB PO SCH (19:58)
[2025-06-30] MEDS: LEVOTHYROXINE SODIUM 112 MCG TABLET PO SCH (05:03)
[2025-06-30 07:29] LABS: Hematocrit (blood only) 28.9 % (37.0-47.0); Hemoglobin 8.7 g/dl (12.0-16.0); Mean Corpuscular Hemoglobin 21.4 pg (25.0-34.0); Mean Corpuscular Volume 71.0 fL (80.0-100.0); Platelet Count 414 K/uL (130-400); RDW Standard Deviation 48.0 fL (36.4-46.3); Red Blood Count 4.07 M/uL (4.20-5.40); White Blood Count 10.46 K/ul (4.8-10.8)
[2025-06-30 07:53] LABS: Anion Gap 6.0 (3-11); Blood Urea Nitrogen 9.0 mg/dl (6-23); Calcium 9.3 mg/dl (8.6-10.3); Carbon Dioxide 30.0 mmol/L (21-32); Chloride 106.0 mmol/L (98-107); Creatinine Clr Calc Pharmacy 111.4 ml/min; Glucose 94.0 mg/dl (70-99(Fasting)); Potassium 3.3 mmol/L (3.5-5.1); Sodium 142.0 mmol/L (136-145)
[2025-06-30 07:54] LABS: INR 2.9 (0.9-1.1); Prothrombin Time 28.3 Seconds (9.0-12.0)
[2025-06-30] MEDS: POTASSIUM CHLORIDE CRTAB 20 MEQ TABCR PO STA (08:57)
[2025-06-30] MEDS: FUROSEMIDE 40 MG/4 ML VIAL IV ONE (09:58)
--- NOTE | 2025-06-30 11:02 | Hospitalist Progress Note ---
Date of Service June 30, 2025 Assessment & Plan (1) Cat bite of hand: Plan: Patient was playing with her 1-year-old cat earlier and got bitten accidentally. right hand got red and swollen. Patient did not take any antibiotics. However here in the hospital she showed me an older picture which showed the swelling has actually improved. Has been on IV Zosyn Gave her a shot of tetanus Redness is much improved Will give her a dose of lasix 40mg to help with edema (2) Cellulitis: Plan: Cellulitis secondary to cat bite With some lymphangitic streaking Continue IV Zosyn as above (3) Pulmonary embolism: Plan: History of factor V Leiden mutation Had pulm embolism and DVT Currently on warfarin (4) Factor 5 Leiden mutation, heterozygous: (5) Vestibular schwannoma: Plan Admit to [facility], hopefully d/c home tomorrow Full code Admission and Anticipated Discharge Date Admission Date: June 29, 2025 Subjective Patient seen and examined, redness and swelling a little better Review of Systems Review of Systems: All systems reviewed are negative, apart from the ones contained in the history. Physical Exam Physical Exam: The patient is awake, alert and oriented 3, well developed and well nourished, normocephalic and atraumatic, lying in bed and in no acute distress. HEENT--PERRL, EOMI, mucous membranes and oropharynx mildly dry Neck--supple. No JVD. No bruits. Thyroid normal, trachea midline, no adenopathy. Heart--normal S1 and S2. No murmurs, rubs or gallops. Lungs--clear bilaterally, no respiratory distress, no accessory muscle use. Abdomen--normal bowel sounds and soft. Extremities--no cyanosis or clubbing. No edema. Dermatologic--normal skin turgor, normal color, no abnormal lymph nodes, no rash. Neurologic--cranial nerves II through XII grossly intact. Rheumatologic--normal range of motion. Psychiatric--normal affect. Results & Data Results & Data Vital Signs (Past 12 Hours) Vital Signs Temp Pulse Resp BP BP Pulse Ox O2 Del Method 06/30/25 07:45 98.4 F 79 16 146/75 H 94 Room Air 06/29/25 23:18 98.2 F 87 18 143/71 H 93 Room Air PG Care Time/CCT Total # of Minutes Spent Total Time Spent with Patient: Total time spent is greater than 50% in coordination of care (as documented) at patient's floor/unit and/or counseling patient: Coding Level of Care Code 93103 SUB INP/OBS CARE 2/35MIN Diagnoses Cat bite of hand S61.459A; W55.01XA Cellulitis L03.90 Pulmonary embolism I26.99 Factor 5 Leiden mutation, heterozygous D68.51 Vestibular schwannoma D33.3 Time Spent (min) 35
[2025-06-30] MEDS: WARFARIN SOD 4 MG TAB PO SCH (16:56)
[2025-07-01 07:50] VITALS: TEMP 98.1
[2025-07-01 08:13] VITALS: BP 103/68; PULSE 66; RESP 18; O2SAT 93
--- NOTE | 2025-07-01 11:16 | Discharge Summary ---
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 Currently the patient, she was playing with her 1-year-old cat when she accidentally bit her. Initially she did not think much of it however the plate started to swell up and got red so she got concerned and decided to come to the hospital for further evaluation and further treatment. She said the cat is up-to-date on her vaccinations. Here in the emergency department blood pressure was 151/117, pulse 76 temperature 97 however WBC was 13,000. She received a dose of antibiotics and will be admitted to the hospital further management. Admission Exam (Per Admitting) Constitutional The patient is awake, alert and oriented 3, well developed and well nourished, normocephalic and atraumatic, lying in bed and in no acute distress. HEENT--PERRL, EOMI, mucous membranes and oropharynx mildly dry Neck--supple. No JVD. No bruits. Thyroid normal, trachea midline, no adenopathy. Heart--normal S1 and S2. No murmurs, rubs or gallops. Lungs--clear bilaterally, no respiratory distress, no accessory muscle use. Abdomen--normal bowel sounds and soft. Extremities--no cyanosis or clubbing. No edema. Dermatologic--normal skin turgor, normal color, no abnormal lymph nodes, no rash. Neurologic--cranial nerves II through XII grossly intact. Rheumatologic--normal range of motion. Psychiatric--normal affect. Hospital Course (1) Cat bite of hand: Patient was playing with her 1-year-old cat earlier and got bitten accidentally. right hand got red and swollen. Patient did not take any antibiotics. However here in the hospital she showed me an older picture which showed the swelling has actually improved. Has been on IV Zosyn Gave her a shot of tetanus Redness and edema is much improved Will discharge her on PO Augmentin 500mg BID for 5 days (2) Cellulitis: Cellulitis secondary to cat bite With some lymphangitic streaking d/c on PO Augmentin for 5 days (3) Pulmonary embolism: History of factor V Leiden mutation Had pulm embolism and DVT Currently on warfarin (4) Factor 5 Leiden mutation, heterozygous: (5) Vestibular schwannoma: Plan Admit to [facility] [place], hopefully d/c home tomorrow Full code Coding Level of Care Code 14591 INP/OBS DISCH >30 MIN Diagnoses Cat bite of hand S61.459A; W55.01XA Cellulitis L03.90 Pulmonary embolism I26.99 Factor 5 Leiden mutation, heterozygous D68.51 Vestibular schwannoma D33.3 Time Spent (min) 35
== END 2025-07-01 13:37 | disposition home or self-care (01) | DRG 605 ==
LOC: ED 10:22 → 3W 14:27